=== PATIENT | female | born 1990 | race Caucasian/White ===

== ENCOUNTER 2018-11-19 15:39 | Observation (INO) ==
[2018-11-19] MEDS ORDERED: BETAMETHASONE ACETATE,SOD PHOS 6 MG/ML VIAL IM ONE (15:47)
[2018-11-19] MEDS ORDERED: MAGNESIUM SULFATE IN WATER 50 ML, MAGNESIUM SULFATE IN WATER 50 ML IV ONE ×2 (15:47)
--- NOTE | 2018-11-19 15:56 | HP ---
Chief Complaint - Chief Complaint Date of Service: 11/19/18 Time of Service: 15:49 Chief Complaint: contractions q 4 minutes History of Present Illness: 28 year old @ 30w 1d complaining of regular contractions q 3 minutes. She denies loss of fluid or vaginal bleeding. Fetus is active. Medical History (Updated 11/19/18 @ 14:40 by Mecca Torres MD) Abnormal Pap smear of cervix Onset Date: Unknown Gestational diabetes PCOS (polycystic ovarian syndrome) Onset Date: Unknown Spontaneous Onset Date: ~2009 Surgical History: Surgical History (Updated 11/18/18 @ 21:40 by Mecca Torres MD) History of appendectomy Onset Date: ~11/18/14 Family History: Family History (Updated 03/28/18 @ 13:52 by Angela Campos LPN) Mother Hypertension Kidney stones Cancer oral CA Father Hypertension Anxiety Grandmother Cervical cancer maternal Social History: Preferred Language Korean Smoking Status Never smoker (Last Updated 11/19/18 @ 15:44 by Mecca Torres MD) No Social History Section defined Review Of Systems (GEN) - Review of Systems Generalized/Overall Review: Present: No Symptoms Reported Genitourinary: Present: Other - contractions Misc: All systems neg except as marked Allergies/Adverse Reactions: Allergies Allergy/AdvReac Type Severity Reaction Status Date / Time grass pollen Allergy Other Verified 11/19/18 14:14 No Known Drug Allergies Allergy Verified 11/19/18 14:14 Home Medications: HOME MEDICATIONS vitamin,calcium,dnuhtszu-hbyc-pcfay acid tablet 1 tab PO DAILY 03/28/18 [Last Taken 11/10/18 21:00] breast pump See Dose Instructions .ROUTE .MEDSUPPLY #1 ea 09/17/18 [Last Taken Unknown] acetaminophen 325 mg capsule 325 mg PO Q6H PRN 11/15/18 [Last Taken Unknown] blood sugar diagnostic strips See Dose Instructions .ROUTE .MEDSUPPLY #100 ea 11/15/18 [Last Taken Unknown] blood-glucose meter kit See Dose Instructions .ROUTE .MEDSUPPLY #1 ea 11/15/18 [Last Taken Unknown] lancets 30 gauge See Dose Instructions .ROUTE .MEDSUPPLY #100 ea 11/15/18 [Last Taken Unknown] magnesium oxide 500 mg tablet 500 mg PO DAILY 11/15/18 [Last Taken Unknown] metoclopramide 10 mg tablet 10 mg PO Q6H #30 tab 11/15/18 [Last Taken Unknown] Exam - Exam Vital Signs: 118/68 Constitutional: Present: Alert, Oriented x3, Cooperative, No distress Respiratory: Present: lungs clear, normal breath sounds Cardiovascular/Chest: Present: regular rate, rhythm, no murmur Abdomen: Present: soft, nontender, nondistended /Rectal: Present: Other - cvx 2/50/-2 Extremity: Present: non-tender, no calf tenderness Skin Exam: Present: normal color, warm/dry, no cyanosis Appearance: Present: appropriate appearance Eye contact: Present: cooperative Thoughts: Present: normal thought pattern Assessment/Plan - Narrative Narrative: 28 year old @ 30w 1d with labor Magnesium 6 gram bolus followed by magnesium 2 grams/hour. Maintenance fluid along with magnesium. Patient has a recent normal baseline creatinine. Ampicillin 2 grams for GBS prophylaxis. GBS was collected yesterday. First dose of steroids Transfer to [place]
[2018-11-19] MEDS ORDERED: MAGNESIUM SULFATE IN WATER 1,000 ML IV SCH (16:00)
[2018-11-19] MEDS ORDERED: AMPICILLIN SODIUM 2,000 MG in NORMAL SALINE 100 ML IV SCH (16:00)
--- NOTE | 2018-11-19 16:20 | DS ---
(1) labor Problem: Acute Description of Stay: The patient was evaluated in the office for labor. She was found to be in labor. She was transferred to L&D to be started on magnesium, ampicillin, and to administer a dose of steroids. She was then transferred to [facility]. Procedures Performed: none Discharge Location: [facility] Disposition: Short Term Hospital Inpatient Condition: Good Discharge Activity: Other Discharge Diet: NPO Referrals: Mecca Torres MD [Primary Care Provider] - Complete Home Medications List: Complete Home Medication List: vitamin,calcium,wcjnibuu-kyaf-cgrrm acid tablet 1 tab PO DAILY 03/28/18 breast pump See Dose Instructions .ROUTE .MEDSUPPLY #1 ea 09/17/18 acetaminophen 325 mg capsule 325 mg PO Q6H PRN 11/15/18 blood sugar diagnostic strips See Dose Instructions .ROUTE .MEDSUPPLY #100 ea 11/15/18 blood-glucose meter kit See Dose Instructions .ROUTE .MEDSUPPLY #1 ea 11/15/18 lancets 30 gauge See Dose Instructions .ROUTE .MEDSUPPLY #100 ea 11/15/18 magnesium oxide 500 mg tablet 500 mg PO DAILY 11/15/18 metoclopramide 10 mg tablet 10 mg PO Q6H #30 tab 11/15/18 diphenhydrAMINE HCL [Benadryl] 25 mg PO Q6H PRN 11/19/18
== END 2018-11-19 17:15 | disposition short-term general hospital (02) ==
LOC: INTOOBSV 15:39 → OB 15:39
PROVIDERS: ADMIT Obstetrics & Gynecology; ATTEND Obstetrics & Gynecology
DX: O60.00 Preterm labor without delivery, unspecified trimester
CPT/HCPCS: 59025